=== PATIENT | male | born 1980 | race Caucasian/White ===

== ENCOUNTER 2018-10-04 17:27 | Inpatient (IN) | payer OTHER ==
[~2018-10-04] VITALS: Ht 152.4 cm; Wt 142.4 kg
[2018-10-04] MEDS ORDERED: HYZAAR 100-251 EACH (17:40)
--- NOTE | 2018-10-04 17:40 | NUR ---
SE RECIBE PTE ALERTA Y ORIENTADO X3,REFIERE DOLOR ABDOMINAL,LO REFIERE EL DR.ANGELO REED ,REFIERE PTE QUE TIENE DIVERTICULOS,LE REALIZARON UN CT TRAJO LOS RESULTADO.
--- NOTE | 2018-10-04 18:04 | NUR ---
MISS. VEE ORIENTA A PACIENTE SOBRE TRAAMIENTO. NOLA MUESTRAS DE LABORATORIO ORDENADAS. CANALIZA CON AREA DE VENOPUNCION HOLGER DE EDEMA O ENROJECIMIENTO. ADMINISTRA MEDICAMENTOS ORDENADOS. SE MANTIENE EN OBSERVACION POR CAMBIOS.
--- NOTE | 2018-10-04 19:14 | NUR ---
PACIENTE RE EVALUADO POR EL DR. Zavala HALE QUIEN ORDENA CT ABDOMINO PELVICO Y COLOCA CONSULTA CON MEDICINA INTERNA.
== END 2018-10-08 17:37 | disposition home or self-care (01) | DRG 392 ==
LOC: ER 17:27 → SEC-K 22:10 → EDSEX 22:10 → MEDI 22:10
PROVIDERS: ADMIT Specialist
PROC: BW21Y0Z Computerized Tomography (CT Scan) of Abdomen and Pelvis using Other Contrast, Unenhanced and Enhanced (ICD-10-PCS; principal; 2018-10-04)
DX: K57.20 Diverticulitis of large intestine with perforation and abscess without bleeding (principal); I10 Essential (primary) hypertension; E66.01 Morbid (severe) obesity due to excess calories; E11.9 Type 2 diabetes mellitus without complications; Z79.4 Long term (current) use of insulin

== ENCOUNTER 2018-10-17 14:19 | Inpatient (IN) | payer OTHER ==
[~2018-10-17] VITALS: Ht 172.7 cm; Wt 137.0 kg
[~2018-10-17 14:19] MED LIST: HYZAAR 100-251 EACH
--- NOTE | 2018-10-17 15:25 | NUR ---
PACIENTE ALERTA Y ORIENTADO EN ALBERTO ESFERAS REFIERE DOLOR A LA PALPACION EN CUADRANTE INFERIOR BRIA, ESPALDA, DIARREAS Y TEMPERATURA ELEVADA. PACIENTE REFIERE FLO ESTADO SIENDO TRATADO PARA DIVERTICULOS HACE MILAGROS SEMANA Y MEDIA. PACIENTE DE DR Gabbie BYRD.
[2018-10-17] MEDS ORDERED: GLUMETZA500 MG (15:27)
[2018-10-17] MEDS ORDERED: INTESTINEX680 M1 PO (15:27)
[2018-10-17] MEDS ORDERED: ATACAND32 MG PO (15:27)
--- NOTE | 2018-10-17 23:11 | NUR ---
SE RECIBE PACIENTE DEL TURNO ANTERIOR ALERTA Y ORIENTADO X3, CON BUEN PATRON RESPIRATORIO Y SIGNOS VITALES ESTABLES, NO REFIERE DOLOR AL MOMENTO CANALIZADO EN BRAZO BRIA PATENTE Y HOLGER DE EDEMA BAJANDO UN 0.45NSS AT 100ML/HR EN ESPERA DE CONSULTA DE INTERNISTA. SE CATE TRANQUILO EN CAMA Y BARANDAS ELEVADAS.
--- NOTE | 2018-10-18 07:05 | NUR ---
SE RECIBE PTE EL CUAL SE ENCUENTRA EN ISHAAN CON AREA DE VENOPUNCION HOLGER DE EDEMA Y ENROJECIENTO CON IV FLUID PATENTE 0.45NSS AT 100ML/HR, PTE SE ENCUENTRA PEND A ENTREGA DE FECAL Y CONSULTA CON DR. BYRD.
== END 2018-10-24 17:53 | disposition home or self-care (01) | DRG 392 ==
LOC: ER 14:19 → MEDJ 10-18 12:56
PROVIDERS: ADMIT Specialist
PROC: BW21ZZZ Computerized Tomography (CT Scan) of Abdomen and Pelvis (ICD-10-PCS; principal; 2018-10-18)
DX: K57.32 Diverticulitis of large intestine without perforation or abscess without bleeding (principal); I10 Essential (primary) hypertension; E11.9 Type 2 diabetes mellitus without complications; E66.01 Morbid (severe) obesity due to excess calories

== ENCOUNTER 2021-11-15 17:21 | Emergency (ER) | payer OTHER ==
[~2021-11-15] VITALS: Ht 172.7 cm; Wt 136.1 kg
[~2021-11-15 17:21] MED LIST changes: +ATACAND32 MG PO; +GLUMETZA500 MG; +INTESTINEX680 M1 PO
== END 2021-11-15 21:01 | disposition home or self-care (01) ==
LOC: ER 17:21
DX: M62.830 Muscle spasm of back (principal); M54.9 Dorsalgia, unspecified; I10 Essential (primary) hypertension; E11.9 Type 2 diabetes mellitus without complications

== ENCOUNTER 2021-11-19 08:53 | Emergency (ER) | payer OTHER ==
[~2021-11-19] VITALS: Ht 172.7 cm; Wt 136.1 kg
[2021-11-19] MEDS ORDERED: IRBESARTAN-HCT1 EACH PO (09:17)
== END 2021-11-19 14:08 | disposition home or self-care (01) ==
LOC: ER 08:53
DX: B00.9 Herpesviral infection, unspecified (principal)

== ENCOUNTER 2023-04-10 15:34 | Emergency (ER) | payer OTHER ==
[~2023-04-10] VITALS: Ht 172.7 cm; Wt 125.2 kg
[~2023-04-10 15:34] MED LIST changes: +IRBESARTAN-HCT1 EACH PO
== END 2023-04-10 19:37 | disposition home or self-care (01) ==
LOC: ER 15:34
DX: J10.1 Influenza due to other identified influenza virus with other respiratory manifestations (principal); I10 Essential (primary) hypertension; Z20.822 Contact with and (suspected) exposure to COVID-19